=== PATIENT | male | born 1980 | race African-American/Black ===

== ENCOUNTER 2016-08-25 06:49 | Emergency (ER) | payer OTHER ==
[~2016-08-25] VITALS: Ht 167.6 cm; Wt 88.5 kg
[2016-08-25] MEDS ORDERED: AMOX500C PO (07:43)
[2016-08-25] MEDS ORDERED: HYDR-971 PO (07:43)
--- NOTE | 2016-08-25 07:45 | PHYS DOC ---
Past Medical History Past Medical History: Depression, Other Additional Past Medical Histor: bipolar Past Surgical History: Other Additional Past Surgical Histo: right knee surgery tooth pulled Alcohol Use: None Drug Use: Marijuana Adult General Chief Complaint Chief Complaint: Toothache [facility] HPI Patient is a 35 year old L presents emergency Department stating he's been having dental pain since Wednesday. He states that he's having left upper and left lower dental pain. He states that he has a dentist in which they are trying to call at the current time for an appointment. He denies any fever, chills or any nausea vomiting he denied denies any drainage or discharge from the dental area. He does have an area on the left upper where the tooth appears to be chipped. He does have. In the center part of the teeth in the upper and lower areas. The gumline on the left lower back area is swollen and tender. A shunt 6 family members stated that they provided him with an oxycodone last night who did not appear to help with the pain and discomfort. Patient has been taken ibuprofen or Aleve for pain and discomfort with minimal relief. Review of Systems Review of Systems Constitutional: Denies fever or chills [] Eyes: Denies change in visual acuity, redness, or eye pain [] HENT: Denies nasal congestion or sore throat. Patient complaint of dental pain Respiratory: Denies cough or shortness of breath [] Cardiovascular: No additional information not addressed in HPI [] GI: Denies abdominal pain, nausea, vomiting, bloody stools or diarrhea [] : Denies dysuria or hematuria [] Musculoskeletal: Denies back pain or joint pain [] Integument: Denies rash or skin lesions [] Neurologic: Denies headache, focal weakness or sensory changes [] Allergies Allergies Allergies Coded Allergies Type Severity Reaction Last Updated Verified tramadol Allergy Intermediate Rash 01/04/15 No Physical Exam Physical Exam Constitutional: Well developed, well nourished, no acute distress, non-toxic appearance. [] HENT: Normocephalic, atraumatic, bilateral external ears normal, oropharynx moist, no oral exudates, nose normal. Bilateral tympanic membranes appear to be normal. Throat appears with no erythematous no postnasal drip. Patient appears to have a broken tooth at the gumline on the left second from the back upper area. Teeth in the upper and lower both have holes in the middle that appear darkened. Patient does have tenderness and swelling along the gumline of the left lower back area. Patient without abscess noted. Patient did however have left enlarged anterior cervical adenopathy. Eyes: PERRLA, EOMI, conjunctiva normal, no discharge. [] Neck: Normal range of motion, no tenderness, supple, no stridor. [] Cardiovascular:Heart rate regular rhythm, no murmur [] Lungs & Thorax: Bilateral breath sounds clear to auscultation [] Skin: Warm, dry, no erythema, no rash. [] Back: No tenderness Extremities: No tenderness, no cyanosis, no clubbing, ROM intact, no edema. [] Neurologic: Alert and oriented X 3, normal motor function, normal sensory function, no focal deficits noted. [] Psychologic: Affect normal, judgement normal, mood normal. [] Current Patient Data Vital Signs Vital Signs Date Time Temp Pulse Resp B/P Pulse Ox O2 Delivery O2 Flow Rate FiO2 08/25/16 06:59 98.4 69 16 149/87 99 Room Air 98.4 EKG EKG [] Radiology/Procedures Radiology/Procedures [] Course & Med Decision Making Course & Med Decision Making Pertinent Labs and Imaging studies reviewed. (See chart for details) Patient states that he had taken an oxycodone earlier this morning with no relief. Recommended him to continue using ibuprofen and Aleve. Family member at the bedside is contacting the dentist at the current time for an appointment. He 'll be provided with amoxicillin and hydrocodone at discharge. Recommended him to continue using either the ibuprofen or the Aleve but not both. Patient will be discharged home in stable condition signs and symptoms to return back to emergency department as been provided. [] Dragon Disclaimer Dragon Disclaimer This electronic medical record was generated, in whole or in part, using a voice recognition dictation system. Departure Departure Impression: Primary Impression: Pain, dental Disposition: 01 HOME, SELF-CARE Condition: STABLE Referrals: NO PCP (PCP) Patient Instructions: Dental Pain, [id number] Additional Instructions: Activity as tolerated Dental wax may be purchased over the counter to place on the broken tooth Medication as prescribed [place] will cause drowsiness do not take if you need to be alert and oriented. Ibuprofen may be take to help with pain and swelling. Eat when taking this medication as this may cause an upset stomach. If upset stomach develops stop taking the medication. Followup with dentist as soon as possible Return to emergency department as needed for signs and symptoms that become worse. Scripts Hydrocodone/Apap 5-325 ([place] 5-325 Tablet)1 Each Tablet1 Tab PO PRN Q6HRS PRN PAIN #6 TAB Prov:LISA RYAN [employer] 08/25/16 Amoxicillin 500 Mg Capsule1 Cap PO BID #20 CAP Prov:LISA RYAN [employer] 08/25/16 LISA RYAN NP Aug 25, 2016 07:45
[2016-08-25 07:52] VITALS: BP 136/99
[2016-08-25] MEDS ORDERED: HYDROCODONE/APAP 5/325MG TABLET. PO ONE (08:00)
== END 2016-08-25 07:59 | disposition home or self-care (01) ==
LOC: ER 06:49
DX: K08.89 Other specified disorders of teeth and supporting structures (principal); F12.10 Cannabis abuse, uncomplicated; Z88.6 Allergy status to analgesic agent
CPT/HCPCS: 99283

== ENCOUNTER 2016-11-19 19:51 | Emergency (ER) | payer OTHER ==
[~2016-11-19] VITALS: Ht 170.2 cm; Wt 79.4 kg
[~2016-11-19 19:51] MED LIST: AMOX500C PO; HYDR-971 PO
--- NOTE | 2016-11-19 20:45 | PHYS DOC ---
Past Medical History Past Medical History: Bipolar, Depression, Other Past Surgical History: Other Additional Past Surgical Histo: right knee surgery, tooth pulled Alcohol Use: None Drug Use: Marijuana Adult General Chief Complaint Chief Complaint: Palpitations HPI HPI Patient is a 36 year old male who presents with palpitations and slight nausea. States he feels fluttering in epigastrium and center of his chest. His symptoms are constant for "some time". He denies chest pain, dyspnea, cough , hemoptysis, leg pain or swelling, diaphoresis, lightheadedness, fever or chills, emesis, diarrhea, bloody or dark stools, exertional symptoms. Review of Systems Review of Systems Constitutional: Denies fever or chills [] Eyes: Denies change in visual acuity, redness, or eye pain [] HENT: Denies nasal congestion or sore throat [] Respiratory: Denies cough or shortness of breath [] Cardiovascular: No additional information not addressed in HPI [] GI: Denies abdominal pain, vomiting, bloody stools or diarrhea [] : Denies dysuria or hematuria [] Musculoskeletal: Denies back pain or joint pain [] Integument: Denies rash or skin lesions [] Neurologic: Denies headache, focal weakness or sensory changes [] Endocrine: Denies polyuria or polydipsia [] Allergies Allergies Allergies Coded Allergies Type Severity Reaction Last Updated Verified tramadol Allergy Intermediate Rash 01/04/15 No Physical Exam Physical Exam Constitutional: Well developed, well nourished, no acute distress, non-toxic appearance. [] HENT: Normocephalic, atraumatic, bilateral external ears normal, oropharynx moist, nose normal. [] Eyes: PERRLA, EOMI. [] Neck: Normal range of motion, supple. [] Cardiovascular: Heart rate regular rhythm [] Lungs & Thorax: Bilateral breath sounds clear to auscultation [] Abdomen: Bowel sounds normal, soft, no tenderness. [] Skin: Warm, dry, no erythema, no rash. [] Back: Normal range of motion. [] Extremities: No tenderness, ROM intact, no edema. [] Neurologic: Alert and oriented X 3, normal motor function, normal sensory function, no focal deficits noted. [] Psychologic: Affect normal, judgement normal, mood normal. [] Current Patient Data Vital Signs Vital Signs Date Time Temp Pulse Resp B/P (MAP) Pulse Ox O2 Delivery O2 Flow Rate FiO2 11/19/16 20:13 98.5 54 18 142/82 (102) 98 Room Air 98.5 Lab Values Laboratory Tests Test 11/19/16 20:06 Sodium Level 141 mmol/L (136-145) Potassium Level 3.9 mmol/L (3.5-5.1) Chloride Level 103 mmol/L (98-107) Carbon Dioxide Level 25 mmol/L (21-32) Anion Gap 13 (6-14) Blood Urea Nitrogen 6 mg/dL (8-26) L Creatinine 0.8 mg/dL (0.7-1.3) Estimated GFR (Cockcroft-Gault) 132.4 Glucose Level 99 mg/dL (70-99) Calcium Level 9.8 mg/dL (8.5-10.1) Thyroid Stimulating Hormone (TSH) 0.686 uIU/mL (0.358-3.74) Laboratory Tests 11/19/16 20:06 EKG EKG EKG as interpreted by me as sinus bradycardia, rate 52, no ST elevations or depressions, peaked T waves, no ectopy Course & Med Decision Making Course & Med Decision Making Pertinent Labs and Imaging studies reviewed. (See chart for details) Laboratory evaluation is unremarkable. Will treat for possible acid reflux. Return precautions given. He understands plan. Dragon Disclaimer Dragon Disclaimer This electronic medical record was generated, in whole or in part, using a voice recognition dictation system. Departure Departure Impression: Primary Impression: Palpitations Additional Impression: Nausea Disposition: HOME, SELF-CARE Condition: STABLE Referrals: NO PCP (PCP) Patient Instructions: Palpitations, [id number] Additional Instructions: Take promethazine as needed for nausea. Take famotidine to help with possible acid reflux. Follow-up with your primary care doctor within one week. Return for any concerns. Scripts Famotidine (FAMOTIDINE) 20 Mg Tablet 20 MG PO BID, #30 TAB Prov: Vamsi HARLEY MD 11/19/16 Promethazine Hcl (PROMETHAZINE HCL) 12.5 Mg Tablet 1 TAB PO Q6-8HRS Y for NAUSEA, #6 TAB 0 Refills Prov: Vamsi HARLEY MD 11/19/16 Problem Qualifiers Vamsi HARLEY MD Nov 19, 2016 20:45
[2016-11-19 20:53] LABS: CALCIUM 9.8 mg/dL (8.5-10.1); CREATININE 0.8 mg/dL (0.7-1.3); GFR 132.4; POTASSIUM 3.9 mmol/L (3.5-5.1)
[2016-11-19 20:58] VITALS: BP 134/100
[2016-11-19] MEDS ORDERED: PROM12.56 PO (21:33)
[2016-11-19] MEDS ORDERED: FAMO20TA5 PO (21:33)
--- NOTE | 2016-11-20 06:42 | EKG ---
[facility] [address] [place] [address] Test Date: 2016-11-19 Test Time: 20:01:15 Pat Name: KEYONNA MEADOWS Department: Room: Gender: M [employer] Architect: : [id number] Requested By: Vamsi HARLEY Order Number: [id number] Reading MD: Angelita Rivera Measurements Intervals [place] Rate: 52 P: ND: QRS: 41 QRSD: 84 T: 42 QT: 380 QTc: 355 Interpretive Statements SINUS RHYTHM NORMAL EKG Electronically Signed On 11-21-2016 19:13:26 CDT by Angelita Rivera
[2016-11-20] MEDS ORDERED: NAPR500T PO (15:42)
[2016-11-20] MEDS ORDERED: CYCL10TA2 PO (15:43)
== END 2016-11-19 21:40 | disposition home or self-care (01) ==
LOC: ER 19:51
DX: R00.2 Palpitations (principal); R11.0 Nausea; F12.10 Cannabis abuse, uncomplicated; F31.9 Bipolar disorder, unspecified
CPT/HCPCS: 36415; 80048; 84443; 93005; 99285-25

== ENCOUNTER 2016-11-20 15:16 | Emergency (ER) | payer OTHER ==
[~2016-11-20 15:16] MED LIST changes: +FAMO20TA5 PO; +PROM12.56 PO
[2016-11-20 15:38] VITALS: BP 141/83
[2016-11-20] MEDS ORDERED: NAPR500T PO (15:42)
[2016-11-20] MEDS ORDERED: CYCL10TA2 PO (15:43)
--- NOTE | 2016-11-20 15:44 | PHYS DOC ---
Past Medical History Past Medical History: Bipolar, Depression, Other Past Surgical History: Other Additional Past Surgical Histo: right knee surgery, tooth pulled Alcohol Use: None Drug Use: Marijuana Adult General Chief Complaint Chief Complaint: BACK PAIN OR INJURY HPI HPI Patient is a 36 year old presents to the emergency department with back pain. He states that he fell one week ago striking the mid back on the edge of the tub. Patient was evaluated yesterday in the emergency department and did not complain of back pain at that time and per the documentation, had full range of motion. Patient denies cough, shortness of breath. He states the pain is worse with movement. Review of Systems Review of Systems Constitutional: Denies fever or chills [] Eyes: Denies change in visual acuity, redness, or eye pain [] HENT: Denies nasal congestion or sore throat [] Respiratory: Denies cough or shortness of breath [] Cardiovascular: No additional information not addressed in HPI [] GI: Denies abdominal pain, nausea, vomiting, bloody stools or diarrhea [] : Denies dysuria or hematuria [] Musculoskeletal: back pain Integument: Denies rash or skin lesions [] Neurologic: Denies headache, focal weakness or sensory changes [] Endocrine: Denies polyuria or polydipsia [] Allergies Allergies Allergies Coded Allergies Type Severity Reaction Last Updated Verified tramadol Allergy Intermediate Rash 01/04/15 No Physical Exam Physical Exam Constitutional: Well developed, well nourished, no acute distress, non-toxic appearance. [] Neck: Normal range of motion, no tenderness, supple, no stridor. [] Cardiovascular:Heart rate regular rhythm, no murmur [] Lungs & Thorax: Bilateral breath sounds clear to auscultation [] Skin: Warm, dry, no erythema, no rash. [] Back: Examined and back, atraumatic, diffuse tenderness to palpate across the mid thorax without midline tenderness. He has full range of motion without difficulty. He does not complain of increased pain with respirations. Extremities: No tenderness, no cyanosis, no clubbing, ROM intact, no edema. [] Neurologic: Alert and oriented X 3, normal motor function, normal sensory function, no focal deficits noted. [] EKG EKG [] Radiology/Procedures Radiology/Procedures [] Course & Med Decision Making Course & Med Decision Making Pertinent Labs and Imaging studies reviewed. (See chart for details) [] Dragon Disclaimer Dragon Disclaimer This electronic medical record was generated, in whole or in part, using a voice recognition dictation system. Departure Departure Impression: Primary Impression: Back pain Disposition: 01 HOME, SELF-CARE Condition: GOOD Referrals: NO PCP (PCP) Patient Instructions: Back Pain, Adult Scripts Cyclobenzaprine Hcl (CYCLOBENZAPRINE HCL) 10 Mg Tablet 1 TAB PO TID, #30 TAB Prov: JAMIE MCKINNON APRN 11/20/16 Naproxen (NAPROSYN) 500 Mg Tablet 1 TAB PO BID Y for PAIN, #20 TAB 1 Refill Prov: JAMIE MCKINNON APRN 11/20/16 JAMIE MCKINNON APRN Nov 20, 2016 15:44
== END 2016-11-20 15:58 | disposition home or self-care (01) ==
LOC: ER 15:16
DX: M54.89 Other dorsalgia (principal); F31.9 Bipolar disorder, unspecified; F12.10 Cannabis abuse, uncomplicated; Z88.5 Allergy status to narcotic agent
CPT/HCPCS: 99283

== ENCOUNTER 2018-04-04 09:59 | Emergency (ER) | payer OTHER ==
[~2018-04-04] VITALS: Ht 170.2 cm; Wt 79.4 kg
[~2018-04-04 09:59] MED LIST changes: +CYCL10TA2 PO; +NAPR-683 PO
[2018-04-04 10:13] VITALS: BP 152/87
[2018-04-04] MEDS ORDERED: CYCL5TAB PO (10:14)
[2018-04-04] MEDS ORDERED: KETOROLAC 60 MG/2 ML INJ. IM ONE (10:15)
--- NOTE | 2018-04-04 10:16 | PHYS DOC ---
Past Medical History Past Medical History: Bipolar, Depression, Other Additional Past Medical Histor: bipolar, irregular HR Past Surgical History: Other Additional Past Surgical Histo: right knee surgery, tooth pulled Alcohol Use: None Drug Use: Marijuana Adult General Chief Complaint Chief Complaint: Neck Pain HPI HPI Patient is a 37 year old male who presents with pain to his bilateral trapezius muscles. 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 He feels that that is when he pulled his muscles. He states that ibuprofen has slightly relieve the pain but it doesn't seem to be improving. He's been having increasing pain over the past week. He denies any cervical pain, headaches, dizziness or gait changes. Review of Systems Review of Systems Constitutional: Denies fever or chills [] Eyes: Denies change in visual acuity, redness, or eye pain [] HENT: Denies nasal congestion or sore throat [] Respiratory: Denies cough or shortness of breath [] Cardiovascular: No additional information not addressed in HPI [] GI: Denies abdominal pain, nausea, vomiting, bloody stools or diarrhea [] : Denies dysuria or hematuria [] Musculoskeletal: See history of present illness Integument: Denies rash or skin lesions [] Neurologic: Denies headache, focal weakness or sensory changes [] Endocrine: Denies polyuria or polydipsia [] All other systems were reviewed and found to be within normal limits, except as documented in this note. Current Medications Current Medications Current Medications Medications (Trade) Dose Ordered Sig/Boom Start Time Stop Time Status Last Admin Dose Admin Ketorolac Tromethamine (Toradol Im) 60 mg 1X ONCE 04/04/18 10:15 04/04/18 10:16 DC 04/04/18 10:24 60 MG Allergies Allergies Allergies Coded Allergies Type Severity Reaction Last Updated Verified tramadol Allergy Intermediate Rash 01/04/15 No Physical Exam Physical Exam Constitutional: Well developed, well nourished, no acute distress, non-toxic appearance. [] HENT: Normocephalic, atraumatic, bilateral external ears normal, oropharynx moist, no oral exudates, nose normal. [] Eyes: PERRLA, EOMI, conjunctiva normal, no discharge. [] Neck: Normal range of motion, tenderness to palpation in bilateral trapezius muscles, no spasming felt, supple, no stridor. [] Cardiovascular:Heart rate regular rhythm, no murmur [] Lungs & Thorax: Bilateral breath sounds clear to auscultation [] Neurologic: Alert and oriented X 3, normal motor function, normal sensory function, no focal deficits noted. [] Psychologic: Affect normal, judgement normal, mood normal. [] Current Patient Data Vital Signs Vital Signs Date Time Temp Pulse Resp B/P (MAP) Pulse Ox O2 Delivery O2 Flow Rate FiO2 04/04/18 10:13 98.0 74 16 152/87 (108) 100 Room Air 98.0 EKG EKG [] Radiology/Procedures Radiology/Procedures [] Course & Med Decision Making Course & Med Decision Making Pertinent Labs and Imaging studies reviewed. (See chart for details) []The patient received a shot of Toradol in the emergency department for pain. Dragon Disclaimer Dragon Disclaimer This electronic medical record was generated, in whole or in part, using a voice recognition dictation system. Departure Departure Impression: Primary Impression: Trapezius strain Disposition: HOME, SELF-CARE Condition: STABLE Referrals: NO PCP (PCP) Patient Instructions: Muscle Strain Additional Instructions: You may use hot compresses for pain relief. Take the medication as prescribed. Follow-up with your primary care provider in 4 days if not improving or return to the emergency department if worsening. Scripts Cyclobenzaprine Hcl (CYCLOBENZAPRINE HCL) 5 Mg Tablet 1 TAB PO QHS, #15 TAB Prov: PAM CARROLL APRN 04/04/18 PAM CARROLL APRN Apr 04, 2018 10:16
== END 2018-04-04 10:30 | disposition home or self-care (01) ==
LOC: ER 09:59
DX: S46.811A Strain of other muscles, fascia and tendons at shoulder and upper arm level, right arm, initial encounter (principal); S46.812A Strain of other muscles, fascia and tendons at shoulder and upper arm level, left arm, initial encounter; F31.9 Bipolar disorder, unspecified; Z88.6 Allergy status to analgesic agent; X50.0XXA Overexertion from strenuous movement or load, initial encounter; Y93.89 Activity, other specified; Y92.512 Supermarket, store or market as the place of occurrence of the external cause; Y99.0 Civilian activity done for income or pay
CPT/HCPCS: 96372; 99283; J1885

== ENCOUNTER 2018-04-08 06:21 | Emergency (ER) | payer OTHER ==
[~2018-04-08] VITALS: Ht 170.2 cm; Wt 79.4 kg
[~2018-04-08 06:21] MED LIST changes: +CYCL5TAB PO
[2018-04-08 06:45] VITALS: BP 151/93
--- NOTE | 2018-04-08 07:37 | PHYS DOC ---
Past Medical History Past Medical History: Bipolar, Depression, Other Additional Past Medical Histor: bipolar, irregular HR Past Surgical History: Other Additional Past Surgical Histo: right knee surgery, tooth pulled Alcohol Use: None Drug Use: Marijuana Adult General Chief Complaint Chief Complaint: BACK PAIN - NO INJURY HPI HPI 37-year-old male presenting the emergency department today with neck pain after lifting multiple heavy boxes at work. It is a sharp shooting pain that he reports feeling tight muscle in his neck. The patient is been present for 2 weeks. He denies fevers chills. He denies any new rashes. Review of systems is negative for vomiting fevers rashes abdominal pain chest pain or shortness of breath. All other review of systems is negative unless otherwise noted in history of present illness. ED course: 37-year-old male presenting with neck pain. On examination he has tenderness to the right paraspinal musculature with palpable spasm of the musculature. He does not have nuchal rigidity or the constelation of symptoms and exam findings to suggest meningitis.The patient has been examined and was not found to have an emergency medical condition. The patient was then discharged home in stable condition to follow up with their primary care physician over the next 2-3 days. They were to return if their symptoms worsened or if they were concerned for any reason. They were also instructed to return to the emergency department if they were unable to get the recommended and appropriate follow-up. [id number] discharge instructions and return precautions were given. Patient's questions were answered to their satisfaction. Patient is comfortable with plan. Review of Systems Review of Systems SEE ABOVE. Allergies Allergies Allergies Coded Allergies Type Severity Reaction Last Updated Verified tramadol Allergy Intermediate Rash 01/04/15 No Physical Exam Physical Exam SEE ABOVE Constitutional: Well developed, well nourished, no acute distress, non-toxic appearance. HENT: Normocephalic, atraumatic, bilateral external ears normal, oropharynx moist, no oral exudates, nose normal. [] Eyes: PERRLA, EOMI, conjunctiva normal, no discharge. Neck: Able to range her neck. Negative Brudzinski sign. Negative Kernig sign. Palpable muscle spasm in the right paraspinal musculature. supple, no stridor. [ ] Cardiovascular:Heart rate regular rhythm, no murmur Lungs & Thorax: Bilateral breath sounds clear to auscultation [] Abdomen: Bowel sounds normal, soft, no tenderness, no masses, no pulsatile masses. Skin: Warm, dry, no erythema, no rash. [] Back: No tenderness, no CVA tenderness. [] Extremities: No tenderness, no cyanosis, no clubbing, ROM intact, no edema. Neurologic: Alert and oriented X 3, normal motor function, normal sensory function, no focal deficits noted. [] Psychologic: Affect normal, judgement normal, mood normal. [] Current Patient Data Vital Signs Vital Signs Date Time Temp Pulse Resp B/P (MAP) Pulse Ox O2 Delivery O2 Flow Rate FiO2 04/08/18 06:45 98.5 75 20 151/93 (112) 100 Room Air 98.5 EKG EKG [] Radiology/Procedures Radiology/Procedures [] Course & Med Decision Making Course & Med Decision Making Pertinent Labs and Imaging studies reviewed. (See chart for details) [] Dragon Disclaimer Dragon Disclaimer This electronic medical record was generated, in whole or in part, using a voice recognition dictation system. Departure Departure Impression: Primary Impression: Neck pain Disposition: 01 HOME, SELF-CARE Condition: STABLE Referrals: NO PCP (PCP) Patient Instructions: Muscle Cramps, [id number] Additional Instructions: Thank you for allowing us to participate in your care today. Return to the emergency department you have any new or worsening symptoms, or if you are concerned for any reason. Return to emergency department if you have any new or concerning symptoms including but not limited to fever, chills, nausea, vomiting, intractable pain, any new rashes, chest pain, shortness of air , uncontrolled bleeding, difficulty breathing, and/or vision loss. Follow up with PT and your pcp in 2-3 days. Call your Primary Doctor tomorrow and inform them of your visit today. If you do not have a primary care provider we are happy to provide you with a list of our primary care providers contact information. This condition should be evaluated by your primary care physician and any recommended consulting services for continued management within 2-3 days after discharge. If at any time, you are having difficulty getting into your primary care doctor or a specialist, return to the emergency department. You may have been prescribed medication or given medication in the emergency department that can change in your level of thinking and ability to operate machinery. Many prescribed medications can cause this. Some commonly prescribed medications include hydrocodone, ativan, and benadryl. Be sure to check with your pharmacist and ask if the medications you've prescribed can affect your level of consciousness. I recommend not operating heavy machinery or driving while on medication such as these. RADHA LOPEZ MD Apr 08, 2018 07:37
== END 2018-04-08 07:53 | disposition home or self-care (01) ==
LOC: ER 06:21
DX: M54.2 Cervicalgia (principal); F31.9 Bipolar disorder, unspecified; Z88.8 Allergy status to other drugs, medicaments and biological substances; X50.0XXA Overexertion from strenuous movement or load, initial encounter; Y93.89 Activity, other specified; Y92.69 Other specified industrial and construction area as the place of occurrence of the external cause; Y99.0 Civilian activity done for income or pay
CPT/HCPCS: 99281

== ENCOUNTER 2018-10-26 01:53 | Emergency (ER) | payer OTHER ==
[~2018-10-26] VITALS: Ht 157.5 cm; Wt 48.1 kg
[~2018-10-26 01:53] MED LIST changes: +HYDR-3164 PO; -HYDR-971 PO; -PROM12.56 PO; +PROM12.58 PO
[2018-10-26 02:06] VITALS: BP 208/84
--- NOTE | 2018-10-26 02:24 | PHYS DOC ---
Past Medical History Past Medical History: No Pertinent History Additional Past Medical Histor: bipolar, irregular HR Past Surgical History: No Surgical History Additional Past Surgical Histo: right knee surgery, tooth pulled Alcohol Use: None Drug Use: None Adult General Chief Complaint Chief Complaint: COUGH HPI HPI Patient is a 37 year old M who presents with a cough. This has been present for 1 week. He states that he has been coughing up some phlegm but is unsure of the color. He also reports wheezing and shortness of breath. He has no known history of asthma or allergies. He is a current everyday smoker. Review of Systems Review of Systems Constitutional: Denies fever or chills [] Eyes: Denies change in visual acuity, redness, or eye pain [] HENT: Denies nasal congestion or sore throat [] Respiratory: Reports cough and shortness of breath [] Cardiovascular: No additional information not addressed in HPI [] GI: Denies abdominal pain, nausea, vomiting, bloody stools or diarrhea [] : Denies dysuria or hematuria [] Musculoskeletal: Denies back pain or joint pain [] Integument: Denies rash or skin lesions [] Neurologic: Denies headache, focal weakness or sensory changes [] Endocrine: Denies polyuria or polydipsia [] All other systems were reviewed and found to be within normal limits, except as documented in this note. Current Medications Current Medications Current Medications Medications (Trade) Dose Ordered Sig/Boom Start Time Stop Time Status Last Admin Dose Admin Albuterol/ Ipratropium (Duoneb) 3 ml 1X ONCE 10/26/18 03:00 10/26/18 03:01 DC 10/26/18 02:47 3 ML Ondansetron HCl (Zofran Odt) 4 mg 1X ONCE 10/26/18 03:00 10/26/18 03:01 DC 10/26/18 02:56 4 MG Prednisone (Prednisone) 50 mg 1X ONCE 10/26/18 03:00 10/26/18 03:01 DC 10/26/18 02:46 50 MG Allergies Allergies Allergies Coded Allergies Type Severity Reaction Last Updated Verified tramadol Allergy Intermediate Rash 01/04/15 No Physical Exam Physical Exam Constitutional: Well developed, well nourished, no acute distress, non-toxic appearance. [] HENT: Normocephalic, atraumatic, bilateral external ears normal, oropharynx moist, no oral exudates, nose normal. [] Eyes: PERRLA, EOMI, conjunctiva normal, no discharge. [] Neck: Normal range of motion, no tenderness, supple, no stridor. [] Cardiovascular:Heart rate regular rhythm, no murmur [] Lungs & Thorax: Rhonchi present, faint wheezing and reactive cough, speaking full sentence [] Abdomen: Bowel sounds normal, soft, no tenderness, no masses, no pulsatile masses. [] Skin: Warm, dry, no erythema, no rash. [] Back: No tenderness, no CVA tenderness. [] Extremities: No tenderness, no cyanosis, no clubbing, ROM intact, no edema. [] Neurologic: Alert and oriented X 3, normal motor function, normal sensory function, no focal deficits noted. [] Psychologic: Affect normal, judgement normal, mood normal. [] Current Patient Data Vital Signs Vital Signs Date Time Temp Pulse Resp B/P (MAP) Pulse Ox O2 Delivery O2 Flow Rate FiO2 10/26/18 02:53 100 Room Air 10/26/18 02:06 98.7 124 26 98.7 Recheck heart rate was in the 80s EKG EKG [] Radiology/Procedures Radiology/Procedures [] Impressions: XRAY NEG MY READ Course & Med Decision Making Course & Med Decision Making Pertinent Labs and Imaging studies reviewed. (See chart for details) []37-year-old smoker presenting with cough history of recent URI has wheezing on examination little bit better after breathing treatment x-ray was essentially negative by my read usual antibiotics prednisone and pro-air as noted below return precautions discussed initial tachycardia resolved patient was not hypoxic discharged in stable condition counseled on Smoking Cessation As Well Dragon Disclaimer Dragon Disclaimer This electronic medical record was generated, in whole or in part, using a voice recognition dictation system. Departure Departure Impression: Primary Impression: Bronchitis Additional Impression: Encounter for smoking cessation counseling Disposition: HOME, SELF-CARE Condition: STABLE Referrals: NO PCP (PCP) Scripts Albuterol Sulfate (Proair Hfa) 8.5 Gm Hfa.aer.ad 1 PUFF INH PRN Q6HRS PRN for SHORTNESS OF BREATH for 5 Days, #1 INHALER Prov: ARTEMIO LOBATO MD 10/26/18 Doxycycline Hyclate (DOXYCYCLINE HYCLATE) 100 Mg Tablet 1 TAB PO BID, #14 TAB Prov: ARTEMIO LOBATO MD 10/26/18 Prednisone (PREDNISONE) 50 Mg Tablet 1 TAB PO DAILY, #5 TAB Prov: ARTEMIO LOBATO MD 10/26/18 Problem Qualifiers ARTEMIO LOBATO MD October 26, 2018 02:24
[2018-10-26] MEDS ORDERED: DOXY100T PO (02:29)
[2018-10-26] MEDS ORDERED: PRED50TA PO (02:29)
[2018-10-26] MEDS ORDERED: ALBU2.5V8 INH (02:29)
[2018-10-26] MEDS ORDERED: IPRATRPIUM/ALBUTEROL 0.5/2.5MG 3 ML NEBU. NEB ONE (03:00)
[2018-10-26] MEDS ORDERED: ONDANSETRON ODT 4 MG TAB.RAPDIS. PO ONE (03:00)
[2018-10-26] MEDS ORDERED: predniSONE 10 MG TABLET PO ONE (03:00)
--- NOTE | 2018-10-26 08:10 | RAD ---
Two-view chest dated 10/26/2018. Comparison made 01/28/2016. CLINICAL INDICATION: Shortness of breath. FINDINGS: PA and lateral views of the chest were obtained. Heart and mediastinal contours are stable. Lungs are clear without focal consolidation. Vascular interstitium within normal limits. No pleural effusion or pneumothorax. Minimal patchy left basilar opacity, likely atelectasis. IMPRESSION: Minimal patchy left basilar opacity, likely atelectasis. Electronically signed by: Reed Mir MD (10/26/2018 8:07 AM) [id number]
== END 2018-10-26 03:30 | disposition home or self-care (01) ==
LOC: ER 01:53
DX: J40 Bronchitis, not specified as acute or chronic (principal); Z71.6 Tobacco abuse counseling; F17.200 Nicotine dependence, unspecified, uncomplicated; F31.9 Bipolar disorder, unspecified; Z88.6 Allergy status to analgesic agent
CPT/HCPCS: 71046; 94640; 99284; J7512; J7620; Q0162

== ENCOUNTER 2020-02-21 13:02 | Emergency (ER) | payer OTHER ==
[~2020-02-21] VITALS: Ht 170.2 cm; Wt 86.3 kg
[~2020-02-21 13:02] MED LIST changes: +ALBU2.5V8 INH; +DOXY100T PO; +PRED50TA PO
[2020-02-21 13:39] VITALS: BP 124/84
[2020-02-21] MEDS ORDERED: IV NORMAL SALINE 1000ML BAG 1,000 ML IV SCH (13:41)
[2020-02-21] MEDS ORDERED: DICYCLOMINE 20 MG/2 ML VIAL. IM ONE (13:45)
[2020-02-21] MEDS ORDERED: FAMOTIDINE 20 MG/2 ML VIAL IVP ONE (13:45)
[2020-02-21] MEDS ORDERED: fentaNYL PF VIAL 100 MCG/2 ML VIAL IVP ONE (13:45)
[2020-02-21] MEDS ORDERED: ONDANSETRON PF 4 MG/2 ML VIAL. IVP ONE (13:45)
--- NOTE | 2020-02-21 14:11 | PHYS DOC ---
Past Medical History Past Medical History: No Pertinent History Additional Past Medical Histor: bipolar, irregular HR (LISA SANTIAGO MAINTENANCE ELECTRICIAN) Past Surgical History: Other Additional Past Surgical Histo: right knee surgery, tooth pulled (LISA SANTIAG[employer] MAINTENANCE ELECTRICIAN) Smoking Status: Current Every Day Smoker Alcohol Use: None Drug Use: None (LISA SANTIAGO MAINTENANCE ELECTRICIAN) General Adult EDM: Chief Complaint: NAUSEA/VOMITING/DIARRHA HPI: HPI: Patient is a 39 year old male who presents with 1/2 days of diarrhea and nausea. He states he will have loose stools and then watery stools. He states this morning he was still having the back of back. He states it feels like a stomach flu. He states he has generalized cramping in his abdomen. He rates it a 7 out of 10. He states he cannot take any medicines. Nothing makes this worse or better. He states he has been drinking Celia mist and keeping it down and it makes him feel better. Patient denies shortness of breath, fever, headache, dizziness, cough, blood in his stool, vomiting, syncope, vision changes, numbness or tingling, focal weakness. He has a history of knee surgery for torn cartilage, bipolar, irregular heart rate and smoker. He states he does also smoke marijuana. States he has not been on any antibiotics recently. (LISA SANTIAGO MAINTENANCE ELECTRICIAN) Review of Systems: Review of Systems: Constitutional: Denies fever or chills. [] Eyes: Denies change in visual acuity. [] HENT: Denies nasal congestion or sore throat. [] Respiratory: Denies cough or shortness of breath. [] Cardiovascular: Denies chest pain or edema. [] GI: abdominal pain, nausea, denies vomiting, bloody stools. Positive for diarrhea. [] : Denies dysuria. [] Musculoskeletal: Denies back pain or joint pain. [] Integument: Denies rash. [] Neurologic: Denies headache, focal weakness or sensory changes. [] Endocrine: Denies polyuria or polydipsia. [] Lymphatic: Denies swollen glands. [] Psychiatric: Denies depression or anxiety. [] (LISA SANTIAGO MAINTENANCE ELECTRICIAN) Heart Score: Risk Factors: Risk Factors: DM, Current or recent (<one month) smoker, HTN, HLP, family history of CAD, obesity. Risk Scores: Score 0 - 3: 2.5% MACE over next 6 weeks - Discharge Home Score 4 - 6: 20.3% MACE over next 6 weeks - Admit for Clinical Observation Score 7 - 10: 72.7% MACE over next 6 weeks - Early Invasive Strategies (LISA SANTIAGO APRN) Current Medications: Current Medications Medications (Trade) Dose Ordered Sig/Boom Start Time Stop Time Status Last Admin Dose Admin Dicyclomine HCl (Bentyl) 20 mg 1X ONCE 02/21/20 13:45 02/21/20 13:49 DC Famotidine (Pepcid Vial) 20 mg 1X ONCE 02/21/20 13:45 02/21/20 13:49 DC Fentanyl Citrate (Fentanyl 2ml Vial) 50 mcg 1X ONCE 02/21/20 13:45 02/21/20 13:49 DC Ondansetron HCl (Zofran) 4 mg 1X ONCE 02/21/20 13:45 02/21/20 13:49 DC Sodium Chloride 1,000 ml @ 1,000 mls/hr Q1H 02/21/20 13:41 02/21/20 14:40 (LISA SANTIAGO MAINTENANCE ELECTRICIAN) Allergies: Allergies: Allergies Coded Allergies Type Severity Reaction Last Updated Verified tramadol Allergy Intermediate Rash 01/04/15 No (LISA SANTIAGO APRN) Physical Exam: PE: Constitutional: Well developed, well nourished, no acute distress, non-toxic appearance. [] HENT: Normocephalic, atraumatic, bilateral external ears normal, oropharynx moist, no oral exudates, nose normal. [] Eyes: PERRLA, EOMI, conjunctiva normal, no discharge. [] Neck: Normal range of motion, no tenderness, supple, no stridor. [] Cardiovascular:Heart rate regular rhythm, no murmur [] Lungs & Thorax: Bilateral breath sounds clear to auscultation [] Abdomen: Bowel sounds normal, soft, generalized tenderness, no masses, no pulsatile masses. [] Skin: Warm, dry, no erythema, no rash. [] Back: No tenderness, no CVA tenderness. [] Extremities: No tenderness, no cyanosis, no clubbing, ROM intact, no edema. [] Neurologic: Alert and oriented X 3, normal motor function, normal sensory function, no focal deficits noted. [] Psychologic: Affect normal, judgement normal, mood normal. [] (LISA SANTIAGO APRN) Current Patient Data: Vital Signs: Vital Signs Date Time Temp Pulse Resp B/P (MAP) Pulse Ox O2 Delivery O2 Flow Rate FiO2 02/21/20 13:39 99.0 67 16 124/84 (97) 97 Room Air 99.0 (LISA SANTIGAO APRN) EKG: EKG: [] (LISA SANTIAGO APRN) Radiology/Procedures: Radiology/Procedures: [] (LISA SANTIAGO APRN) Course & Med Decision Making: Course & Med Decision Making Pertinent Labs and Imaging studies reviewed. (See chart for details) Alert and oriented x4. Ambulatory with steady gait. Speaks in full complete sentences. Skin pink warm and dry. Vital signs within normal limits. Afebrile. Abdomen is generalized tenderness with palpation but soft. Patient is refusing CT scan. Patient states that he wants to leave and he is feeling better. Patient is signing out AMA. Patient is told that he cannot be properly diagnosed and of which can result in or disability. He states his understanding. Vital signs are stable. He is alert and oriented x4. He remained stable. Blood work shows no acute findings. [] (LISA SANTIAGO APRN) Course & Med Decision Making I have reviewed the PA/[employer] TECHNICAL ASSISTANT's note and Plan of Care. I was available for consultation as needed during the patient's visit in the emergency department. I agree with the clinical impression, plans and disposition. (BIENVENIDO JORDAN MD) Dragon Disclaimer: Dale Disclaimer: This electronic medical record was generated, in whole or in part, using a voice recognition dictation system. (LISA SANTIAGO APRN) Departure Departure Impression: Primary Impression: Nausea & vomiting Qualified Codes: R11.2 - Nausea with vomiting, unspecified Disposition: AGAINST MEDICAL ADVICE Condition: STABLE Referrals: NO PCP (PCP) Justicifation of Admission Dx: Justifications for Admission: Justification of Admission Dx: N/A (LEFT AMA) (LISA SANTIAGO APRN) LISA SANTIAGO APRN Feb 21, 2020 14:11 BIENVENIDO JORDAN MD Feb 21, 2020 15:29
[2020-02-21 14:38] LABS: BASO # 0.1 x10^3/uL (0.0-0.2); BASO % 1 % (0-3); EOS % 1 % (0-3); HEMATOCRIT 43.3 % (39.0-53.0); HEMOGLOBIN 14.1 g/dL (13.0-17.5); LYMPH # 1.8 x10^3/uL (1.0-4.8); LYMPH % 25 % (24-48); MEAN CORPUSCULAR HEMOGLOBIN 31 pg (25-35); MEAN CORPUSCULAR HGB CONC 33 g/dL (31-37); MEAN CORPUSCULAR VOLUME 95 fL (79-100); MONO # 0.5 x10^3/uL (0.0-1.1); MONO % 7 % (0-9); NEUT # 4.8 x10^3/uL (1.8-7.7); NEUT % 66 % (31-73); PLATELET COUNT 209 x10^3/uL (140-400); RED BLOOD COUNT 4.54 x10^6/uL (4.30-5.70); RED CELL DISTRIBUTION WIDTH 12.4 % (11.5-14.5); WHITE BLOOD COUNT 7.2 x10^3/uL (4.0-11.0)
[2020-02-21 14:50] LABS: PROTHROMBIN TIME PATIENT 13.7 SEC (11.7-14.0)
[2020-02-21 14:52] LABS: CALCIUM 8.7 mg/dL (8.5-10.1); CREATININE 0.9 mg/dL (0.7-1.3); GFR 113.7; POTASSIUM 3.7 mmol/L (3.5-5.1)
[2020-02-21 14:57] LABS: ALBUMIN 3.9 g/dL (3.4-5.0); ALBUMIN/GLOBULIN RATIO 1.3 (1.0-1.7); TOTAL BILIRUBIN 0.5 mg/dL (0.2-1.0)
[2020-02-21] MEDS ORDERED: CONTRAST GIVEN. MC PRN (15:00)
[2020-02-21] MEDS ORDERED: IOHEXOL 300 MG/ML 100ML VIAL. IV ONE (15:00)
[2020-02-21 15:11] LABS: BILIRUBIN,URINE NEGATIVE (NEG); CLARITY,URINE CLEAR; COLOR,URINE YELLOW; NITRITE,URINE NEGATIVE (NEG); PROTEIN,URINE NEGATIVE (NEG-TRACE); UROBILINOGEN,URINE 0.2 mg/dL (0.2 mg/dL)
[2020-02-21 15:18] LABS: BARBITURATES NEG (NEG); BENZODIAZEPINES POS (NEG); CANNABINOIDS POS (NEG); COCAINE NEG (NEG); METHADONE NEG (NEG); OPIATES NEG (NEG); PHENCYCLIDINE NEG (NEG)
[2020-02-21 15:20] LABS: AMPHETAMINE/METHAMPHETAMINE NEG (NEG); SQUAMOUS EPITHELIAL CELL,UR FEW /LPF
[2020-02-21 15:21] LABS: BACTERIA,URINE 0 /HPF (0-FEW); RBC,URINE RARE /HPF (0-2); WBC,URINE OCC /HPF (0-4)
--- NOTE | 2020-02-23 09:25 | NUR ---
IP: Informed pt of negative COVID results. Pt verbalized understanding.
== END 2020-02-21 15:20 | disposition left against medical advice (07) ==
LOC: ER 13:02
DX: R11.2 Nausea with vomiting, unspecified (principal); R19.7 Diarrhea, unspecified; R10.9 Unspecified abdominal pain; F31.9 Bipolar disorder, unspecified; F17.200 Nicotine dependence, unspecified, uncomplicated; Z98.890 Other specified postprocedural states
CPT/HCPCS: 36415; 80053; 80307; 81001; 83690; 85025; 85610; 96361; 96372; 96374; 96375; 99285; J0500; J2405; J3010; J3490; J7030; U0003